=== PATIENT | male | born 1950 | race African-American/Black ===

== ENCOUNTER 2018-06-12 02:12 | Inpatient (IN) | payer MEDICARE ==
[~2018-06-12] VITALS: Ht 172.7 cm; Wt 107.0 kg
[2018-06-12] VITALS (7 sets, daily range): BP systolic 178–206; BP diastolic 82–101
[2018-06-12] MEDS ORDERED: METFORMIN HCL500 MG PO (02:33)
[2018-06-12] MEDS ORDERED: ZOFRAN ODT4 MG PO (02:33)
[2018-06-12] MEDS ORDERED: CRESTOR10 MG PO (02:33)
[2018-06-12] MEDS ORDERED: LISINOPRIL20 MG PO (02:33)
[2018-06-12] MEDS ORDERED: PROCARDIA XL30 MG PO (02:33)
[2018-06-12] MEDS ORDERED: ONDANSETRON HCL INJ 2 MG/ML VIAL IV STA (02:34)
[2018-06-12 02:42] LABS: BASOPHILS % 0.2 % (0.0-1.0); HEMOGLOBIN 16.4 g/dL (14.0-18.0); LYMPHOCYTES # (AUTO) 0.6 (1.0-3.2); LYMPHOCYTES % 7.9 % (18.0-39.1); MEAN CORPUSCULAR HEMOGLOBIN 31.8 pg (28-32); MEAN CORPUSCULAR HGB CONC 35.7 g/dL (31-35); MEAN CORPUSCULAR VOLUME 89.1 fL (81-99); MONOCYTES # (AUTO) 0.6 (0.2-0.8); MONOCYTES % 7.3 % (4.4-11.3); NEUTROPHILS # (AUTO) 6.8 (2.1-6.9); NEUTROPHILS % 84.2 % (38.7-80.0); PLATELET COUNT 199 x10e3/uL (140-360); RED BLOOD COUNT 5.16 x10e6/uL (4.3-5.7); RED CELL DISTRIBUTION WIDTH 12.4 % (11.7-14.4)
[2018-06-12] MEDS ORDERED: SODIUM CHLORIDE 0.9% 1000ML 1,000 ML IV ONE (02:45)
[2018-06-12 02:54] LABS: ALANINE AMINOTRANSFERASE 55 IU/L (0-55); ALBUMIN 4.4 g/dL (3.5-5.0); ALKALINE PHOSPHATASE 74 IU/L (40-150); AMYLASE 116 U/L (25-125); ANION GAP 19.5 mmol/L (8-16); BLOOD UREA NITROGEN 11 mg/dL (7-26); BUN/CREATININE RATIO 11 (6-25); CALCIUM 9.6 mg/dL (8.4-10.2); CARBON DIOXIDE 23 mmol/L (22-29); CHLORIDE 83 mmol/L (98-107); CREATININE, SERUM 0.97 mg/dL (0.72-1.25); EST GLOMERULAR FILTRATION RATE > 60 ML/MIN (60-); GLUCOSE 191 mg/dL (74-118); LIPASE 46 U/L (8-78); POTASSIUM 3.5 mmol/L (3.5-5.1); SODIUM 122 mmol/L (136-145)
[2018-06-12] MEDS ORDERED: METOPROLOL TARTRATE INJ 1 MG/ML VIAL IV ONE ×2 (03:15→04:00)
[2018-06-12] MEDS ORDERED: METOPROLOL TARTRATE INJ 1 MG/ML VIAL ONE (03:16)
[2018-06-12] MEDS ORDERED: SODIUM CHLORIDE 0.9% 50ML 50 ML ONE (03:19)
[2018-06-12] MEDS ORDERED: IOPAMIDOL 370 MG/ML 200 ML INFUS..BTL INJ ONE (03:19)
[2018-06-12 04:07] LABS: BILIRUBIN,URINE NEGATIVE (NEGATIVE); CLARITY,URINE CLEAR (CLEAR); COLOR,URINE YELLOW (YELLOW); KETONES,URINE NEGATIVE (NEGATIVE); LEUKOCYTE ESTERASE ,URINE NEGATIVE (NEGATIVE); NITRITE,URINE NEGATIVE (NEGATIVE); PROTEIN,URINE DIPSTICK 2+ (NEGATIVE); URINE UROBILINOGEN 0.2 mg/dL (0.2 - 1)
[2018-06-12 04:12] LABS: BACTERIA,URINE RARE /HPF; EPITHELIAL CELLS,URINE RARE /LPF
[2018-06-12 04:19] LABS: CREATINE KINASE MB 9.9 ng/mL (0-5.0)
--- NOTE | 2018-06-12 04:49 | Diagnostic Imaging Report ---
EXAM: CT Abdomen and Pelvis WITH contrast INDICATION: Nausea and vomiting for one day. COMPARISON: None. TECHNIQUE: Abdomen and pelvis were scanned utilizing a multidetector helical scanner from the lung base to the pubic symphysis after administration of IV contrast. Coronal and sagittal reformations were obtained. Routine protocol was performed. Scan was performed during portal venous phase. IV CONTRAST: 100 mL of Isovue-370 ORAL CONTRAST: Water COMPLICATIONS: None RADIATION DOSE: Total DLP: 68.9 mGy*cm Estimated effective dose: (DLP x 0.015 x size factor) mSv CTDIvol has been reviewed. It is below the limits set by the Radiation Protocol Committee (RPC). Dose modulation, iterative reconstruction, and/or weight based adjustment of the mA/kV was utilized to reduce the radiation dose to as low as reasonably achievable. FINDINGS: LINES and TUBES: Penile prosthesis with reservoir in the right lower quadrant. LOWER THORAX: Coronary artery calcifications. Mild dependent atelectasis, right greater than left. HEPATOBILIARY: Hepatic steatosis. No focal hepatic lesions. No biliary ductal dilation. GALLBLADDER: No radio-opaque stones or sludge. No wall thickening. SPLEEN: No splenomegaly. PANCREAS: No focal masses or ductal dilatation. ADRENALS: No adrenal nodules KIDNEYS/URETERS: Mild bilateral perinephric stranding. Kidneys enhance symmetrically. No hydronephrosis. Right inferior pole tiny hypodensity, too small to characterize but statistically likely a cyst. No stones. GI TRACT: No abnormal distention, wall thickening, or evidence of bowel obstruction. Stomach is mild to moderately distended. There are diverticula within the colon without evidence of diverticulitis. Appendix is normal. PELVIC ORGANS/BLADDER: Distended bladder measuring approximately 17.6 x 8.9 x 11 cm. Prostate not enlarged measuring approximately 3.3 cm in transverse diameter. LYMPH NODES: No lymphadenopathy. VESSELS: There is moderate atherosclerotic disease in the aorta and major arterial branches. PERITONEUM / RETROPERITONEUM: No free air or fluid. BONES: There are mild degenerative changes in the lumbar spine. SOFT TISSUES: Unremarkable. IMPRESSION: 1. Markedly distended bladder. Recommend correlation for urinary retention. No hydronephrosis. 2. Otherwise, no acute abnormalities in the abdomen or pelvis. 3. Mild to moderate gastric distension which may be related to scanning shortly after enteric water contrast ingestion or gastroparesis. 4. Hepatic steatosis. Signed by: DR. Enrique Jackson MD on 06/12/2018 4:46 AM
--- OUTSIDE RECORDS SUMMARY | 2018-06-12 05:10 | XMS REPORT ---
Author Author [facility] [place] Address Unknown Phone Unavailable Care Team Providers Care Network Liaison Name Role Phone Nancy LANDAVERDE Unavailable Unavailable Problems This patient has no known problems. Allergies, Adverse Reactions, Alerts This patient has no known allergies or adverse reactions. Medications This patient has no known medications. Results Test Description Test Time Test Comments Text Results Atomic Results Result Comments CT ABDOMEN/PELVIS W 2018-06-12 04:28:00 [place] [address] Patient Name: BURAK MATTHEWS MR #: [id number] : 1950 Age/Sex: 68/M Req #: [id number] Adm Physician: Ordered by: ABDULAZIZ LANDAVERDE MD Report #: [id number] Location: ER Room/Bed: Procedure: [id number] CT/CT ABDOMEN/PELVIS W Exam Date: 06/12/18 Exam Time: 0325 REPORT STATUS: Signed EXAM: CT Abdomen and Pelvis WITH contrast INDICATION: Nausea and vomiting for one day. COMPARISON: None. TECHNIQUE: Abdomen and pelvis were scanned utilizing a multidetector helical scanner from the lung base to the pubic symphysis after administration of IV contrast. Coronal and sagittal reformations were obtained. Routine protocol was performed. Scan was performed during portal venous phase. IV CONTRAST: 100 mL of Isovue-370 ORAL CONTRAST: Water COMPLICATIONS: None RADIATION DOSE: Total DLP: 68.9 mGy*cm Estimated effective dose: (DLP x 0.015 x size factor) mSv CTDIvol has been reviewed. It is below the limits set by the Radiation Protocol Committee (RPC). Dose modulation, iterative reconstruction, and/or weight based adjustment of the mA/kV was utilized to reduce the radiation dose to as low as reasonably achievable. FINDINGS: LINES and TUBES: Penile prosthesis with reservoir in the right lower quadrant. LOWER THORAX: Coronary artery calcifications. Mild dependent atelectasis, right greater than left. HEPATOBILIARY: Hepatic steatosis. No focal hepatic lesions. No biliary ductal dilation. GALLBLADDER: No radio-opaque stones or sludge. No wall thickening. SPLEEN: No splenomegaly. PANCREAS: No focal masses or ductal dilatation. ADRENALS: No adrenal nodules KIDNEYS/URETERS: Mild bilateral perinephric stranding. Kidneys enhance symmetrically. No hydronephrosis. Right inferior pole tiny hypodensity, too small to characterize but statistically likely a cyst. No stones. GI TRACT: No abn ormal distention, wall thickening, or evidence of bowel obstruction. Stomach is mild to moderately distended. There are diverticula within the colon without evidence of diverticulitis. Appendix is normal. PELVIC ORGANS/BLADDER: Distended bladder measuring approximately 17.6 x 8.9 x 11 cm. Prostate not enlarged measuring approximately 3.3 cm in transverse diameter. LYMPH NODES: No lymphadenopathy. VESSELS: There is moderate atherosclerotic disease in the aorta and major arterial branches. PERITONEUM / RETROPERITONEUM: No free air or fluid. BONES: There are mild degenerative changes in the lumbar spine. SOFT TISSUES: Unremarkable. IMPRESSION: 1. Markedly distended bladder. Recommend correlation for urinary retention. No hydronephrosis. 2. Otherwise, no acute abnormalities in the abdomen or pelvis. 3. Mild to moderate gastric distension which may be related to scanning shortly after enteric water contrast ingestion or gastroparesis. 4. Hepatic steatosis. Signed by: DR. Enrique Jackson MD on 06/12/2018 4:46 AM Dictated By: ENRIQUE JACKSON MD 5 Transcribed By: TIFFANIE on 06/12/18445 COPY TO: ABDULAZIZ LANDAVERDE MD
[2018-06-12] MEDS ORDERED: DEXTROSE 50% SYRINGE 50 ML IV PRN (05:15)
[2018-06-12] MEDS ORDERED: ONDANSETRON HCL INJ 2 MG/ML VIAL IV PRN (05:15)
[2018-06-12] MEDS: HYDRALAZINE HCL 20 MG/ML VIAL IV PRN ×2 (05:24→09:04)
[2018-06-12] MEDS ORDERED: ONDANSETRON HCL INJ 2 MG/ML VIAL ONE (05:49)
[2018-06-12] MEDS ORDERED: PANTOPRAZOLE 40 MG 10ML VIAL ONE (05:50)
[2018-06-12] MEDS ORDERED: METOCLOPRAMIDE HCL 10 MG/2ML VIAL IV SCH (06:00)
[2018-06-12] MEDS: SODIUM CHLORIDE 0.9% 1000ML 1,000 ML IV SCH ×3 (06:34→19:51)
[2018-06-12] MEDS: INSULIN REGULAR, HUMAN 100 UNIT/1 ML 3ML VIAL SQ SCH ×2 (08:49→11:30)
[2018-06-12] MEDS ORDERED: PANTOPRAZOLE 40 MG 10ML VIAL IV SCH (09:00)
[2018-06-12] MEDS ORDERED: CLONIDINE HCL 0.2 MG TAB ONE (12:06)
[2018-06-12] MEDS: CLONIDINE HCL 0.1 MG TAB PO PRN ×2 (12:08→19:51)
[2018-06-12 12:35] LABS: ANION GAP 16.4 mmol/L (8-16); BLOOD UREA NITROGEN 10 mg/dL (7-26); BUN/CREATININE RATIO 11 (6-25); CALCIUM 9.1 mg/dL (8.4-10.2); CARBON DIOXIDE 22 mmol/L (22-29); CHLORIDE 87 mmol/L (98-107); EST GLOMERULAR FILTRATION RATE > 60 ML/MIN (60-); GLUCOSE 142 mg/dL (74-118); POTASSIUM 3.4 mmol/L (3.5-5.1); SODIUM 122 mmol/L (136-145)
[2018-06-12 12:39] LABS: CREATINE KINASE 1680 IU/L (30-200)
--- NOTE | 2018-06-12 14:14 | Diagnostic Imaging Report ---
History: Ataxia, hyperintense Comparison studies: None Technique: Sagittal T2; axial DWI, FLAIR, MPGR, T1, Coronal FLAIR. Intravenous contrast: None Findings: Scalp: Normal in signal . No masses . Bone marrow: Normal in signal intensity. Extra-axial: No masses, no fluid collections. Brain sulci: Mildly prominent. Ventricles: Mildly prominent . No hydrocephalus . Parenchyma: Scattered T2/flair hyperintensities of the periventricular and deep white matter No masses, hemorrhage, acute or chronic vascular insults. Suprasellar region: No abnormalities. Craniocervical junction: No abnormalities. Patent foramen magnum. No Chiari one malformation. Vessels: Normal flow-voids in the arteries and sinuses. IMPRESSION: 1. No acute abnormalities. 2. Moderate chronic microvascular ischemic changes of the white matter. Mild diffuse age-related volume loss Signed by: DR Douglas Aquino M.D. on 06/12/2018 2:11 PM
[2018-06-12] MEDS ORDERED: MECLIZINE HCL 12.5 MG TAB PO PRN (14:30)
[2018-06-12] MEDS: NIFEDIPINE CR 30 MG TAB PO SCH (16:45)
[2018-06-12] MEDS: INSULIN LISPRO 100 UNIT/1 ML 3ML VIAL SQ SCH ×2 (17:16→19:51)
[2018-06-12 20:47] LABS: CREATINE KINASE MB 8.1 ng/mL (0-5.0)
[2018-06-13] MEDS: HYDRALAZINE HCL 20 MG/ML VIAL IV PRN (00:08)
[2018-06-13 01:12] VITALS: BP 187/95
[2018-06-13 04:58] LABS: BASOPHILS % 0.2 % (0.0-1.0); HEMATOCRIT 43.6 % (38.2-49.6); HEMOGLOBIN 15.1 g/dL (14.0-18.0); LYMPHOCYTES # (AUTO) 1.1 (1.0-3.2); LYMPHOCYTES % 18.2 % (18.0-39.1); MEAN CORPUSCULAR HEMOGLOBIN 31.5 pg (28-32); MEAN CORPUSCULAR HGB CONC 34.6 g/dL (31-35); MONOCYTES % 16.7 % (4.4-11.3); NEUTROPHILS % 64.4 % (38.7-80.0); PLATELET COUNT 187 x10e3/uL (140-360); RED BLOOD COUNT 4.79 x10e6/uL (4.3-5.7); RED CELL DISTRIBUTION WIDTH 13.2 % (11.7-14.4)
[2018-06-13 05:24] LABS: ALANINE AMINOTRANSFERASE 50 IU/L (0-55); ALBUMIN 3.7 g/dL (3.5-5.0); ALKALINE PHOSPHATASE 60 IU/L (40-150); ANION GAP 15.4 mmol/L (8-16); BLOOD UREA NITROGEN 11 mg/dL (7-26); BUN/CREATININE RATIO 11 (6-25); CALCIUM 8.8 mg/dL (8.4-10.2); CARBON DIOXIDE 23 mmol/L (22-29); CHLORIDE 98 mmol/L (98-107); CREATININE, SERUM 1.02 mg/dL (0.72-1.25); EST GLOMERULAR FILTRATION RATE > 60 ML/MIN (60-); GLUCOSE 135 mg/dL (74-118); POTASSIUM 3.4 mmol/L (3.5-5.1); SODIUM 133 mmol/L (136-145)
[2018-06-13 06:11] VITALS: BP 137/85
[2018-06-13 06:45] LABS: CHOL/HDL RATIO 4.9 (3.9-4.7)
[2018-06-13 06:55] LABS: CREATINE KINASE MB 4.4 ng/mL (0-5.0)
[2018-06-13] MEDS: INSULIN LISPRO 100 UNIT/1 ML 3ML VIAL SQ SCH ×4 (07:30→20:56)
[2018-06-13 08:00] VITALS: BP 169/79
[2018-06-13] MEDS: SODIUM CHLORIDE 0.9% 1000ML 1,000 ML IV SCH (08:57)
[2018-06-13] MEDS: LISINOPRIL 20 MG TAB PO SCH (09:00)
[2018-06-13] MEDS: NIFEDIPINE CR 30 MG TAB PO SCH ×2 (09:00→17:13)
[2018-06-13 12:00] VITALS: BP 199/109
[2018-06-13] MEDS ORDERED: POTASSIUM CHLORIDE 20 MEQ TAB CR PO ONE (14:09)
[2018-06-13 16:00] VITALS: BP 178/90
[2018-06-13 20:00] VITALS: BP 170/77
[2018-06-13] MEDS: CLONIDINE HCL 0.1 MG TAB PO PRN (21:41)
[2018-06-14] VITALS: BP 123/73
[2018-06-14 04:00] VITALS: BP 135/74
[2018-06-14 05:18] LABS: BASOPHILS % 0.4 % (0.0-1.0); EOSINOPHILS % 0.4 % (0.0-6.0); HEMATOCRIT 43.6 % (38.2-49.6); HEMOGLOBIN 14.7 g/dL (14.0-18.0); LYMPHOCYTES # (AUTO) 1.2 (1.0-3.2); LYMPHOCYTES % 21.5 % (18.0-39.1); MEAN CORPUSCULAR HEMOGLOBIN 31.4 pg (28-32); MEAN CORPUSCULAR HGB CONC 33.7 g/dL (31-35); MEAN CORPUSCULAR VOLUME 93.2 fL (81-99); MONOCYTES % 18.7 % (4.4-11.3); NEUTROPHILS # (AUTO) 3.2 (2.1-6.9); NEUTROPHILS % 58.6 % (38.7-80.0); PLATELET COUNT 181 x10e3/uL (140-360); RED BLOOD COUNT 4.68 x10e6/uL (4.3-5.7); RED CELL DISTRIBUTION WIDTH 13.4 % (11.7-14.4)
[2018-06-14 05:38] LABS: ANION GAP 15.6 mmol/L (8-16); BLOOD UREA NITROGEN 13 mg/dL (7-26); BUN/CREATININE RATIO 15 (6-25); CARBON DIOXIDE 22 mmol/L (22-29); CHLORIDE 102 mmol/L (98-107); CREATINE KINASE 1225 IU/L (30-200); CREATININE, SERUM 0.87 mg/dL (0.72-1.25); EST GLOMERULAR FILTRATION RATE > 60 ML/MIN (60-); GLUCOSE 131 mg/dL (74-118); MAGNESIUM 2.2 MG/DL (1.3-2.1); POTASSIUM 3.6 mmol/L (3.5-5.1); SODIUM 136 mmol/L (136-145)
[2018-06-14 05:58] LABS: THYROID STIMULATING HORMONE 0.977 uIU/mL (0.350-4.940)
[2018-06-14] MEDS: INSULIN LISPRO 100 UNIT/1 ML 3ML VIAL SQ SCH (07:30)
[2018-06-14] MEDS: LISINOPRIL 20 MG TAB PO SCH (09:00)
[2018-06-14] MEDS: NIFEDIPINE CR 30 MG TAB PO SCH (09:00)
[2018-06-14 12:00] VITALS: BP_SYST 129; BP_SYST 190; BP_DIAS 68; BP_DIAS 79
[2018-06-14] MEDS ORDERED: NIFEDIPINE CR 30 MG TAB PO ONE (13:00)
--- NOTE | 2018-06-14 13:52 | Discharge Summary ---
PRIMARY CARE DOCTOR: Dr. Bryant Hopkins with [facility]. FINAL DIAGNOSIS: Hypertensive urgency. SECONDARY DIAGNOSES 1. Severe hyponatremia, resolved. 2. Rhabdomyolysis, resolving. 3. Diabetes. CONSULTANTS: None. PROCEDURES/STUDIES PERFORMED 1. MRI of the brain, which did not show any acute disease. 2. CT of the abdomen and pelvis, which was relatively unremarkable. HISTORY: Per H and P. HOSPITAL COURSE: Patient was admitted with dizziness and hypertension. Stat MRI was done, which did not show any acute disease. At home, patient takes nifedipine 30 mg daily and lisinopril 20 mg daily. At this time, he will go home on nifedipine 60 mg b.i.d. Patient understands and will do so. Initially on admission, his CPK was 1390, it peaked at 1878 and at the time of discharge is 1225 with IV fluid. Most likely what happened was because of the severe dizziness, patient vomited and cause hyponatremia due to hypovolemia. With hydration, his sodium slowly came up from 122 to 136 at the time of discharge. Patient seen and examined today. It took 32 minutes total to discharge this patient. CONDITION ON DISCHARGE: Improved. DISCHARGE MEDICATIONS: Please see medication reconciliation form. BEBETO HENDRIX M.D. Job#: [id number] AKU cc:BRYANT HOPKINS MD
== END 2018-06-14 14:53 | disposition home or self-care (01) | DRG 305 ==
LOC: ER 02:12 → ERHOLD 05:08 → MED/SURG2 06:09
PROVIDERS: ADMIT Internal Medicine; ATTEND Internal Medicine
DX: I16.0 Hypertensive urgency (principal); E87.1 Hypo-osmolality and hyponatremia; M62.82 Rhabdomyolysis; E86.1 Hypovolemia; E87.6 Hypokalemia; E11.9 Type 2 diabetes mellitus without complications; I10 Essential (primary) hypertension; E78.5 Hyperlipidemia, unspecified; E86.9 Volume depletion, unspecified; Z28.21 Immunization not carried out because of patient refusal; Z79.84 Long term (current) use of oral hypoglycemic drugs
CPT/HCPCS: 36415; 70551; 74177; 80048; 80053; 80061; 81001; 82150; 82550; 82553; 82948; 83690; 83735; 84443; 84484; 85025; 93005; 94640; 96361; 99284; J0360; J2405; J2765; J7030; Q9967

== ENCOUNTER 2020-04-04 23:05 | Inpatient (IN) | payer MEDICARE, OTHER ==
[~2020-04-04] VITALS: Ht 172.7 cm; Wt 107.0 kg
[~2020-04-04 23:05] MED LIST: CRESTOR10 MG PO; LISINOPRIL20 MG PO; METFORMIN HCL500 MG PO; PROCARDIA XL30 MG PO; ZOFRAN ODT4 MG PO
[2020-04-04] MEDS ORDERED: ASPIRIN 81 MG CHEW TAB PO ONE (23:15)
[2020-04-04] MEDS ORDERED: FUROSEMIDE INJ 10 MG/ML 4 ML VIAL ONE (23:17)
[2020-04-04 23:29] LABS: INR 0.87; PROTHROMBIN TIME 12.3 seconds (11.9-14.5)
[2020-04-04 23:30] LABS: PARTIAL THROMBOPLASTIN TIME 25.5 seconds (23.8-35.5)
[2020-04-04 23:38] LABS: BASOPHILS % 0.4 % (0.0-1.0); CHLORIDE 101 mmol/L (98-107); EOSINOPHILS # (AUTO) 0.1 (0.0-0.4); EOSINOPHILS % 1.2 % (0.0-6.0); HEMATOCRIT 48.5 % (38.2-49.6); HEMOGLOBIN 15.9 g/dL (14.0-18.0); LYMPHOCYTES # (AUTO) 3.5 (1.0-3.2); MEAN CORPUSCULAR HEMOGLOBIN 31.2 pg (28-32); MEAN CORPUSCULAR HGB CONC 32.8 g/dL (31-35); MEAN CORPUSCULAR VOLUME 95.3 fL (81-99); MONOCYTES # (AUTO) 1.4 (0.2-0.8); MONOCYTES % 15.4 % (4.4-11.3); NEUTROPHILS # (AUTO) 4.1 (2.1-6.9); NEUTROPHILS % 44.7 % (38.7-80.0); PLATELET COUNT 224 x10e3/uL (140-360); RED BLOOD COUNT 5.09 x10e6/uL (4.3-5.7); RED CELL DISTRIBUTION WIDTH 13.2 % (11.7-14.4)
[2020-04-04 23:40] LABS: ALANINE AMINOTRANSFERASE 73 IU/L (0-55); ALBUMIN 4.7 g/dL (3.5-5.0); ALBUMIN/GLOBULIN RATIO 1.2 (0.8-2.0); ALKALINE PHOSPHATASE 92 IU/L (40-150); ANION GAP 20.3 mmol/L (8-16); BLOOD UREA NITROGEN 16 mg/dL (7-26); BUN/CREATININE RATIO 11 (6-25); CALCIUM 9.3 mg/dL (8.4-10.2); CARBON DIOXIDE 20 mmol/L (22-29); CREATINE KINASE 292 IU/L (30-200); CREATININE, SERUM 1.48 mg/dL (0.72-1.25); EST GLOMERULAR FILTRATION RATE 57 ML/MIN (60-); GLUCOSE 172 mg/dL (74-118); POTASSIUM 3.3 mmol/L (3.5-5.1); SODIUM 137 mmol/L (136-145)
[2020-04-04 23:41] LABS: BILIRUBIN,URINE NEGATIVE (NEGATIVE); CLARITY,URINE CLEAR (CLEAR); COLOR,URINE YELLOW (YELLOW); KETONES,URINE NEGATIVE (NEGATIVE); LEUKOCYTE ESTERASE ,URINE NEGATIVE (NEGATIVE); NITRITE,URINE NEGATIVE (NEGATIVE); PROTEIN,URINE DIPSTICK 2+ (NEGATIVE); URINE UROBILINOGEN 0.2 mg/dL (0.2 - 1)
[2020-04-04 23:52] LABS: BACTERIA,URINE FEW /HPF; EPITHELIAL CELLS,URINE FEW /LPF; RBC,URINE 0-5 /HPF (0-5); WBC,URINE (MAN) 0-5 /HPF (0-5)
--- NOTE | 2020-04-04 23:53 | Emergency Department Note ---
History of Present Illnes History of Present Illness Chief Complaint: Respiratory History of Present Illness This is a 70 year old male PRESENTS TO ED WITH SOB, DIAPHORETIC X4-5 HRS; PT ALSO REPORTS SOB X1 WEEK, TAKEN TO ED RM #10 ON ARRIVAL; ER MD / ED STAFF AT ; SPO2 68% RA, NRB 15 LPM PLACED WITH RESULTING SPO2 100%; RESP CALLED TO BS FOR BIPAP; . Historian: Patient, Family Member Arrival Mode: Car Rate Marker Required: No Onset (how long ago): day(s) (7) Location: lungs Quality: sob Severity: severe Onset quality: gradual Duration (how long): day(s) (7) Timing of current episode: constant Progression: worsening Chronicity: new Context: Denies recent illness, Denies recent surgery Relieving factors: none Exacerbating factors: movement Associated symptoms: Reports denies other symptoms Past Medical/Family History Physician Review I have reviewed the patient's past medical and family history. Any updates have been documented here. Past Medical History Recent Fever: No Clinical Suspicion of Infectio: No New/Unexplained Change in Ment: No Past Medical History: Hypertension, Diabetes, Hyperlipedemia Other Surgery: BILATERAL KNEE SURGERY Social History Smoking Cessation: Never Smoker Counseling Performed: No Alcohol Use: None Any Illegal Drug Use: No Physically hurt or threatened: No Other Any Pre-Existing Lines (PICC,: No Review of Systems Review of Systems Constitutional: Reports no symptoms EENTM: Reports no symptoms Cardiovascular: Reports no symptoms Respiratory: Reports as per HPI Gastrointestinal: Reports no symptoms Genitourinary: Reports no symptoms Musculoskeletal: Reports no symptoms Integumentary: Reports no symptoms Neurological: Reports no symptoms Psychological: Reports no symptoms Endocrine: Reports no symptoms Hematological/Lymphatic: Reports no symptoms Physical Exam Related Data Allergies: Coded Allergies: No Known Allergies (Unverified , 06/12/18) Triage Vital Signs Vital Signs Date Time Temp Pulse Resp B/P (MAP) Pulse Ox O2 Delivery O2 Flow Rate FiO2 04/04/20 23:06 97.6 158 38 207/140 68 Room Air Vital signs reviewed: Yes Physical Exam CONSTITUTIONAL Constitutional: Present well-developed, Present well-nourished, Present distressed (severe) HENT HENT: Present normocephalic, Present atraumatic, Present oropharynx clear/moist, Present nose normal HENT L/R: Present left ext ear normal, Present right ext ear normal EYES Eyes: Reports PERRL, Reports conjunctivae normal NECK Neck: Present ROM normal PULMONARY Pulmonary: Present effort normal, Present rales (througout, ), Present other (rr 48 on arrival) CARDIOVASCULAR Cardiovascular: Present regular rhythm, Present heart sounds normal, Present capillary refill normal, Present tachycardia (155) GASTROINTESTINAL Abdominal: Present soft, Present nontender, Present bowel sounds normal GENITOURINARY Genitourinary: Present exam deferred SKIN Skin: Present warm, Present other (diaphoretic ) MUSCULOSKELETAL Musculoskeletal: Present ROM normal NEUROLOGICAL Neurological: Present alert, Present oriented x 3, Present no gross motor or sensory deficits PSYCHOLOGICAL Psychological: Present mood/affect normal, Present judgement normal Results Laboratory Result Diagram: 04/04/205 04/04/205 Laboratory Laboratory Tests Test 04/04/20 23:20 04/04/20 23:15 Urine Color Yellow (YELLOW) Urine Clarity Clear (CLEAR) Urine pH 7 (5 - 7) Urine Specific [place] 1.020 (1.010-1.025) Urine Protein 2+ (NEGATIVE) Urine Glucose (UA) Negative (NEGATIVE) Urine Ketones Negative (NEGATIVE) Urine Blood Negative (NEGATIVE) Urine Nitrite Negative (NEGATIVE) Urine Bilirubin Negative (NEGATIVE) Urine Urobilinogen 0.2 mg/dL (0.2 - 1) Urine Leukocyte Esterase Negative (NEGATIVE) White Blood Count 9.24 x10e3/uL (4.8-10.8) Red Blood Count 5.09 x10e6/uL (4.3-5.7) Hemoglobin 15.9 g/dL (14.0-18.0) Hematocrit 48.5 % (38.2-49.6) Mean Corpuscular Volume 95.3 fL (81-99) Mean Corpuscular Hemoglobin 31.2 pg (28-32) Mean Corpuscular Hemoglobin Concent 32.8 g/dL (31-35) Red Cell Distribution Width 13.2 % (11.7-14.4) Platelet Count 224 x10e3/uL (140-360) Neutrophils (%) (Auto) 44.7 % (38.7-80.0) Lymphocytes (%) (Auto) 38.0 % (18.0-39.1) Monocytes (%) (Auto) 15.4 % (4.4-11.3) Eosinophils (%) (Auto) 1.2 % (0.0-6.0) Basophils (%) (Auto) 0.4 % (0.0-1.0) Neutrophils # (Auto) 4.1 (2.1-6.9) Lymphocytes # (Auto) 3.5 (1.0-3.2) Monocytes # (Auto) 1.4 (0.2-0.8) Eosinophils # (Auto) 0.1 (0.0-0.4) Basophils # (Auto) 0.0 (0.0-0.1) Absolute Immature Granulocyte (auto 0.03 x10e3/uL (0-0.1) Prothrombin Time 12.3 seconds (11.9-14.5) Prothromb Time International Ratio 0.87 Activated Partial Thromboplast Time 25.5 seconds (23.8-35.5) Sodium Level 137 mmol/L (136-145) Potassium Level 3.3 mmol/L (3.5-5.1) Chloride Level 101 mmol/L (98-107) Carbon Dioxide Level 20 mmol/L (22-29) Anion Gap 20.3 mmol/L (8-16) Blood Urea Nitrogen 16 mg/dL (7-26) Creatinine 1.48 mg/dL (0.72-1.25) Estimat Glomerular Filtration Rate 57 ML/MIN (60-) BUN/Creatinine Ratio 11 (6-25) Glucose Level 172 mg/dL (74-118) Calcium Level 9.3 mg/dL (8.4-10.2) Total Bilirubin 0.5 mg/dL (0.2-1.2) Aspartate Amino Transf (AST/SGOT) 52 IU/L (5-34) Alanine Aminotransferase (ALT/SGPT) 73 IU/L (0-55) Alkaline Phosphatase 92 IU/L (40-150) Creatine Kinase 292 IU/L (30-200) Creatine Kinase MB 3.60 ng/mL (0-4.3) Troponin I < 0.05 ng/mL (0.0-0.40) Total Protein 8.6 g/dL (6.5-8.1) Albumin 4.7 g/dL (3.5-5.0) Globulin 3.9 g/dL (2.3-3.5) Albumin/Globulin Ratio 1.2 (0.8-2.0) Procedures 12 Lead ECG Interpretation ECG Interpretation #1: ECG: ECG 1 Rate Marker: Interpreted by ED physician Date: Apr 04, 2020 Time: 23:13 Rhythm: sinus tachycardia QRS axis: right Conduction: left bundle branch block ST segments normal: No T waves normal: No Other findings: LVH Clinical Impression: abnormal ECG ECG Interpretation #2: ECG: ECG 2 Rate Marker: Interpreted by ED physician Date: Apr 04, 2020 Time: 23:53 Rhythm: sinus tachycardia Rate: tachycardia BPM: 111 Conduction: left bundle branch block ST segments normal: No T waves normal: No Clinical Impression: abnormal ECG Critical Care Time Total Critical Care Time (min): 31 Critcal care necessary due to: cardiac failure Critcal care time spent by me: develop tx plan w patient/surrogate, discussion w consultants, discussion w primary provider, interpret cardiac output measures, evaluation patient response to tx, examination of patient, obtaining hx from patient/surrogate, order/perform tx or interventions, order/review laboratory studies, order/review radiographic studies, pulse oximetry, re-evaluation of patient condition Assessment & Plan Medical Decision Making MDM pt in severe respiratory distress on arrival, on exam pt with rales throughout and 3 plus pitting edema of legs, pt placed on bpap emergently for chf/pulmonary edema, lasix 80 mg iv ordered, pt's respiratory distress and need for bipap is due to pulmonary edema cbc, cmp, ekg, cardiac enzymes, cxr, bnp ordered to eval for myocardial infa rction, pulmonary edema, electrolyte abnormality, renal insufficiency/failure PT RESPONDED WELL TO BIPAP AND LASIX 0029 BP 172/119, PULSE 110, OXYGEN 100% ON BIPAP, RR 24, PT NOW ABLE TO TALK IN FULL SENTENCES I SPOKE WITH DR HENDRIX AND DR HESTER PT ADMITTED TO [facility] Reassessment Reassessment time: 23:52 Reassessment on bipap pt looks much better, rr now 26, heart rate 110, oxygen saturation 100%, no longer diaphoretic Assessment & Plan Final Impression: (1) Respiratory distress (2) CHF (congestive heart failure) (3) Hypoxia (4) Flash pulmonary edema Depart Disposition: ADMITTED Last Vital Signs Date Time Temp Pulse Resp B/P (MAP) Pulse Ox O2 Delivery O2 Flow Rate FiO2 04/04/20 23:41 118 30 188/140 100 Bi-pap 04/04/20 23:06 97.6 Home Meds Reported Medications Metformin Hcl (METFORMIN HCL) 500 Mg Tablet, 500 MG PO BID, #60 TAB 06/12/18 Ondansetron (ZOFRAN ODT) 4 Mg Tab.rapdis, 4 MG PO Q6HR PRN for NAUSEA AND VOMITING, TAB 06/12/18 Lisinopril (PRINAVIL / ZESTRIL) 20 Mg Tablet, 20 MG PO DAILY 06/12/18 Nifedipine (PROCARDIA XL) 30 Mg Tab.er.24, 30 MG PO DAILY, #30 TAB 06/12/18 Medications in the ED Furosemide 80 mg STK-MED ONCE .ROUTE ; Start 04/04/20 at 23:17; Stop 04/04/20 at 23:11; Status DC Aspirin 81 mg PRN ONCE PO ; Start 04/04/20 at 23:15; Stop 04/04/20 at 23:29; Status DC ABDULAZIZ LANDAVERDE MD Apr 04, 2020 23:53
--- NOTE | 2020-04-04 23:53 | Diagnostic Imaging Report ---
EXAMINATION: CHEST SINGLE (PORTABLE) INDICATION: ^SOB, PULMONARY EDEMA ^[id number] ^2335 ^Y COMPARISON: None FINDINGS: AP view TUBES and LINES: None. LUNGS: Lungs are well inflated. Pulmonary vascular congestion. Mild to moderate pulmonary edema. PLEURA: No pneumothorax. Suspected small bilateral pleural effusions, left greater than right. HEART AND MEDIASTINUM: The cardiac silhouette is borderline enlarged. BONES AND SOFT TISSUES: No acute osseous lesion. Surgical clips projecting over right upper quadrant or right lower chest. UPPER ABDOMEN: No free air under the diaphragm. IMPRESSION: Central pulmonary vascular congestion and mild moderate interstitial edema. Underlying pneumonia cannot be excluded, in the lower lung new, in the appropriate clinical context. Suspected small bilateral pleural effusions, left greater right. Signed by: Dr. Nj Vlila MD on 04/04/2020 11:50 PM
--- OUTSIDE RECORDS SUMMARY | 2020-04-04 23:54 | XMS REPORT | Continuity of Care Document ---
Author Author [facility] Organization [facility] Address [address] [place] [address] Phone Unavailable Care Team Providers Care Change Control Specialist Name Role Phone Nancy LANDAVERDE Attphys Unavailable Drew HENDRIX Attphys Unavailable Drew HENDRIX Admphys Unavailable Problems This patient has no known problems. Allergies, Adverse Reactions, Alerts This patient has no known allergies or adverse reactions. Medications This patient has no known medications. Procedures This patient has no known procedures. Results Test Description Test Time Test Comments Results Result Comments Source CHEST SINGLE (PORTABLE) 2020-04-04 23:47:00 [place] [address] Patient Name: BURAK MATTHEWS MR #: [id number] : 1950 Age/Sex: 70/M Req #: [id number] Adm Physician: Ordered by: ABDULAZIZ LANDAVERDE MD Report #: [id number] Location: ER Room/Bed: Procedure: [id number] DX/CHEST SINGLE (PORTABLE) Exam Date: 04/04/20 Exam Time: 2334 REPORT STATUS: Signed EXAMINATION: CHEST SINGLE (PORTABLE) INDICATION: SOB, PULMONARY EDEMA [id number] Y COMPARISON: None FINDINGS: AP view TUBES and LINES: None. LUNGS: Lungs are well inflated. Pulmonary vascular congestion. Mild to moderate pulmonary edema. PLEURA: No pneumothorax. Suspected small bilateral pleural effusions, left greater than right. HEART AND MEDIASTINUM: The cardiac silhouette is borderline enlarged. BONES AND SOFT TISSUES: No acute osseous lesion. Surgical clips projecting over right upper quadrant or right lower chest. UPPER ABDOMEN: No free air under the diaphragm. IMPRESSION: Central pulmonary vascular congestion and mild moderate interstitial edema. Underlying pneumonia cannot be excluded, in the lower lung new, in the appropriate clinical context. Suspected small bilateral pleural effusions, left greater right. Signed by: Dr. Nj Mejía MD on 04/04/2020 11:50 PM Dictated By: NJ MEJÍA MD 49 Transcribed By: TIFFANIE on 04/04/202349 COPY TO: ABDULAZIZ LANDAVERDE MD MRI BRAIN WO 2018-06-12 14:07:00 [place] [address] Patient Name: BURAK MATTHEWS MR #: [id number] : 1950 Age/Sex: 68/M Req #: [id number] Adm Physician: BEBETO HENDRIX MD Ordered by: BEBETO HENDRIX MD Report #: [id number] Location: MED/SURG2 Room/Bed: [facility] [place] Procedure: [id number] MRI/MRI BRAIN WO Exam Date: Exam Time: REPORT STATUS: Signed History: Ataxia, hyperintense Comparison studies: None Technique: Sagittal T2; axial DWI, FLAIR, MPGR, T1, Coronal FLAIR. Intravenous contrast: None Findings: Scalp: Normal in signal . No masses . Bone marrow: Normal in signal intensity. Extra-axial: No masses, no fluid collections. Brain sulci: Mildly prominent. Ventricles: Mildly prominent . No hydrocephalus . Parenchyma: Scattered T2/flair hyperintensities of the periventricular and deep white matter No masses, hemorrhage, acute or chronic vascular insults. Suprasellar region: No abnormalities. Craniocervical junction: No abnormalities. Patent foramen magn um. No Chiari one malformation. Vessels: Normal flow-voids in the arteries and sinuses. IMPRESSION: 1. No acute abnormalities. 2. Moderate chronic microvascular ischemic changes of the white matter. Mild diffuse age- related volume loss Signed by: DR Douglas Aquino M.D. on 06/12/2018 2:11 PM Dictated By: DOUGLAS SOTELO MD 1411 Transcribed By: TIFFANIE on 06/12/18 141 COPY TO: BEBETO HENDRIX MD CT ABDOMEN/PELVIS W 2018-06-12 04:28:00 [place] [address] Patient Name: BURAK MATTHEWS MR #: [id number] : 1950 Age/Sex: 68/M Req #: [id number] Adm Physician: Ordered by: ABDULAZIZ LANDAVERDE MD Report #: [id number] Location: ER Room/Bed: Procedure: [id number] CT/CT ABDOMEN/PELVIS W Exam Date: 06/12/18 Exam [...] 4. Hepatic steatosis. Signed by: DR. Enrique Garcia MD on 06/12/2018 4:46 AM Dictated By: ENRIQUE GARCIA MD 5 Transcribed By: TIFFANIE on 06/12/18445 COPY TO: ABDULAZIZ LANDAVERDE MD
[2020-04-05] VITALS (7 sets, daily range): BP systolic 108–152; BP diastolic 81–94
[2020-04-05] MEDS ORDERED: NITROGLYCERIN 2% OINT 1 GM PKT TOP ONE
[2020-04-05] MEDS ORDERED: NITROGLYCERIN 2% OINT 1 GM PKT ONE (00:07)
[2020-04-05] MEDS ORDERED: SODIUM CHLORIDE FLUSH 10 ML SYR INJ PRN (00:30)
[2020-04-05] MEDS ORDERED: DEXTROSE 50% SYRINGE 50 ML IV PRN (00:30)
[2020-04-05] MEDS: HYDRALAZINE HCL 20 MG/ML VIAL IV PRN ×2 (01:45→06:43)
--- OUTSIDE RECORDS SUMMARY | 2020-04-05 05:04 | XMS REPORT | Continuity of Care Document ---
Author Author [facility] Organization [facility] Address [address] [place] [address] Phone Unavailable Care Team Providers Care Environmental Health Manager Name Role Phone Nancy LANDAVERDE Attphys Unavailable [...] Comments Source CHEST SINGLE (PORTABLE) 2020-04-04 23:47:00 [place] [address] Patient Name: BURAK MATTHEWS MR #: [id number] : 1950 Age/Sex: 70/M Req #: [id number] Adm Physician: Ordered by: ABDULAZIZ LANDAVERDE MD Report #: [id number] Location: ER Room/Bed: Procedure: [id number] DX/CHEST SINGLE (PORTABLE) Exam Date: 04/04/20 Exam [...] LANDAVERDE MD MRI BRAIN WO 2018-06-12 14:07:00 [place] [address] Patient Name: BURAK MATTHEWS MR #: [id number] : 1950 Age/Sex: 68/M Req #: [id number] Adm Physician: BEBETO HENDRIX MD Ordered by: BEBETO HENDRIX MD Report #: [id number] Location: MED/SURG2 Room/Bed: [facility] Procedure: [id number] MRI/MRI BRAIN WO Exam Date: Exam Time: [...] HENDRIX MD CT ABDOMEN/PELVIS W 2018-06-12 04:28:00 [place] [address] Patient Name: BURAK MATTHEWS MR #: [id number] : 1950 Age/Sex: 68/M Req #: [id number] Adm Physician: Ordered by: ABDULAZIZ LANDAVERDE MD Report #: [id number] Location: ER Room/Bed: Procedure: [id number] CT/CT ABDOMEN/PELVIS W Exam Date: 06/12/18 Exam [...]
--- NOTE | 2020-04-05 05:50 | NUR ---
o2 sat remains 98%-100% on bipap. resp even and unalbored c rate 15-20 per minute. pt calm c no distress noted. md states to change patient to nasal canula. rt called. pt changed to nasal canula at 2l. o2 sat remains 100%.
[2020-04-05] MEDS ORDERED: NITROGLYCERIN 2% OINT 1 GM PKT TOP SCH (06:00)
[2020-04-05] MEDS ORDERED: POTASSIUM CHLORIDE 20 MEQ TAB CR PO NR (06:30)
[2020-04-05 07:25] LABS: CREATINE KINASE MB 3.3 ng/mL (0-5.0)
[2020-04-05] MEDS: INSULIN REGULAR, HUMAN 100 UNIT/1 ML 3ML VIAL SQ SCH ×4 (07:29→21:00)
[2020-04-05] MEDS ORDERED: CRESTOR10 MG PO (07:40)
[2020-04-05] MEDS ORDERED: TIZANIDINE HCL4 MG PO (07:40)
[2020-04-05 08:00] LABS: BASOPHILS % 0.1 % (0.0-1.0); EOSINOPHILS % 0.1 % (0.0-6.0); HEMATOCRIT 41.3 % (38.2-49.6); LYMPHOCYTES # (AUTO) 0.8 (1.0-3.2); LYMPHOCYTES % 12.1 % (18.0-39.1); MEAN CORPUSCULAR HGB CONC 33.9 g/dL (31-35); MONOCYTES # (AUTO) 0.9 (0.2-0.8); MONOCYTES % 13.6 % (4.4-11.3); NEUTROPHILS # (AUTO) 4.9 (2.1-6.9); NEUTROPHILS % 73.8 % (38.7-80.0); PLATELET COUNT 183 x10e3/uL (140-360); RED BLOOD COUNT 4.52 x10e6/uL (4.3-5.7); RED CELL DISTRIBUTION WIDTH 13.1 % (11.7-14.4)
[2020-04-05 08:03] LABS: MEAN CORPUSCULAR VOLUME 91.4 fL (81-99)
[2020-04-05 08:22] LABS: ANION GAP 20.5 mmol/L (8-16); BLOOD UREA NITROGEN 15 mg/dL (7-26); BUN/CREATININE RATIO 13 (6-25); CALCIUM 8.6 mg/dL (8.4-10.2); CARBON DIOXIDE 19 mmol/L (22-29); CHLORIDE 102 mmol/L (98-107); EST GLOMERULAR FILTRATION RATE > 60 ML/MIN (60-); GLUCOSE 127 mg/dL (74-118); POTASSIUM 3.5 mmol/L (3.5-5.1); SODIUM 138 mmol/L (136-145)
[2020-04-05] MEDS ORDERED: NIFEDIPINE CR 30 MG TAB PO SCH (09:15)
[2020-04-05] MEDS ORDERED: DIGOXIN 0.125 MG TAB PO NR (09:15)
[2020-04-05] MEDS ORDERED: CLOPIDOGREL BISULFATE 75 MG TAB PO NR (09:30)
[2020-04-05] MEDS: LISINOPRIL 10 MG TAB PO SCH ×2 (11:24→17:05)
[2020-04-05] MEDS: CARVEDILOL 12.5 MG TAB PO SCH ×2 (11:24→17:05)
[2020-04-05] MEDS: FUROSEMIDE INJ 10 MG/ML 4 ML VIAL IV SCH ×2 (11:24→17:05)
[2020-04-05] MEDS ORDERED: ENOXAPARIN SOD INJ 40 MG/0.4 ML SYR SC NR (12:00)
[2020-04-05] MEDS ORDERED: ACETAMINOPHEN 325 MG TAB PO PRN (12:00)
--- NOTE | 2020-04-05 13:23 | History and Physical ---
REPORT TITLE: Cardiac Consultation. BODY AFTER REPORT TITLE: REASON FOR CONSULTATION: Pulmonary edema acute and impending respiratory failure. HISTORY OF PRESENT ILLNESS: A 70-year-old gentleman known with diabetes mellitus and hypertension. The patient followed at [facility]. The patient for the last few weeks having worsening shortness of breath on exertion. Yesterday, it was very severe. The patient came to the emergency room, he was having extreme sinus tachycardia with left bundle branch block, very high blood pressure and pulmonary edema. We discussed the case with the ER physician. He was placed on BiPAP, he was given diuretics, he was given medication to lower his blood pressure. The patient seems to be settled down, admitted to intermediate care unit. I visited with the patient today, described chest pressure and chest tightness on exertion progressively worse in addition to class 4 heart failure like symptoms. He does have orthopnea and paroxysmal nocturnal dyspnea. He does feel his heart racing. He cannot do any activity without severe symptoms. He does have old class 4 heart failure symptoms as well as chest pressure and chest tightness. He is not aware of any cardiac workup. He is not aware he does have left bundle branch block. REVIEW OF SYSTEMS: GENERAL: Weakness, unable to do usual activities, severe shortness of breath. No fever, no chills. HEENT: No vision problem. No hearing problem. PULMONARY AND CARDIAC: Class 4 heart failure symptoms and acute pulmonary edema with chest pressure, chest tightness, orthopnea, paroxysmal nocturnal dyspnea, tachycardia, cough. GI: No hematemesis. No melena. No abdominal pain. : No hematuria, no dysuria. MUSCULOSKELETAL: Nonspecific aches at time. NEUROLOGICAL: No weakness. ENDOCRINE: The patient is diabetic on metformin. SKIN: No skin rashes. HEMATOLOGY: No easy bruising or bleeding. SOCIAL HISTORY: He is retired from [employer]. He is . Unfortunately, he smokes and he drinks 6 beers per day and some time whiskey. PAST MEDICAL HISTORY: 1. Hypertension of many years duration. 2. Diabetes mellitus of many years duration. 3. Bilateral knee replacement. 4. Degenerative joint disease symptoms. 5. Prior admission with hyponatremia and rhabdomyolysis in the past. 6. Hyperlipidemia. HOME MEDICATIONS: Include Zestril 20 mg a day, nifedipine 30 mg a day, Crestor 10 mg a day, Tizanidine, and metformin 500 mg twice a day. ALLERGIES: NONE. FAMILY HISTORY: Father and mother in their 60s, he does not know the cause of this. There is history of diabetes mellitus, hypertension, and heart failure in the family and one of his sister had also pacemaker. PHYSICAL EXAMINATION: VITAL SIGNS: Height of 5 feet 8 inches, weight of 236 pounds, blood pressure 140/80, heart rate of 110, respiratory rate of 18, afebrile. HEENT: Pupils are reactive. NECK: Elevation of jugular venous pulsation is noted. CHEST: Bilateral crackles. HEART: PMI 5th left intercostal space. Normal first and second heart sounds. Soft heart murmur. ABDOMEN: Soft. No organomegaly. Liver is palpable 3 cm below the right costal margin. EXTREMITIES: Lower extremities mild edema. NEUROLOGIC: Awake, alert, and oriented. LABORATORY DATA: Sodium of 137, potassium 3.3, BUN of 16, creatinine of 1.48. White blood cell count of 9.2, hemoglobin 15.9, hematocrit 48%. Chest x-ray showing pulmonary edema with cardiomegaly and bilateral pleural effusion. IMPRESSION AND PLAN: 1. Acute pulmonary edema. 2. Hypertension. 3. Diabetes mellitus. 4. Smoker. 5. The patient drinks alcohol 5-6 beers a day. 6. Left bundle branch block. 7. Hyperlipidemia. We had a lengthy discussion about his presentation when he had flash pulmonary edema. We are going to get an echocardiogram, serial cardiac enzymes, deep venous thrombosis prophylaxis. We are going to load him with Plavix. The substrate for his flash pulmonary edema needs to be investigated further. This could be simply severe hypertension, but other very severe coronary artery disease. Because of the patient's size, presence of left bundle branch block etc. and very acute and very critical presentation, the patient was almost going to be arrested and intubated having proceeding directly with cardiac cath would be better choice than noninvasive workup. Risks are discussed and explained including , bleeding, etc. Questions are answered. MD SHEELA Pagan/LIN /[id number]
--- NOTE | 2020-04-05 14:33 | History and Physical ---
PRIMARY CARE PHYSICIAN: Dr. Hopkins at [facility]. CHIEF COMPLAINT: Shortness of breath and generalized weakness. HISTORY OF PRESENT ILLNESS: This is a 70-year-old male with past medical history of hypertension, high cholesterol, diabetes, who presented to the ER with complaints of shortness of breath x1 week and fatigue with exertion. He reports he had stopped taking his blood pressure medication because he was having leg cramps, so that is when his shortness of breath started to worsen. Last night, he was not able to sleep and continued to have extreme shortness of breath, so presented to the ER for further evaluation. He denies chest pain, nausea, vomiting, abdominal pain, or leg pain. He, however, reported diaphoretic, diaphoresis, shortness of breath with exertion and at rest, he also reported not being able to breathe through his nose, mainly thought was due to sinus allergies. In the ER, he was noted to have O2 saturation of 68% on room air. He was placed on oxygen 2 L to 100%. His blood pressure was 207/140. Chest x-ray with pulmonary congestion. First set of troponins negative. BNP was 259, so he was admitted for further evaluation and management. PAST MEDICAL HISTORY: 1. Hypertension. 2. High cholesterol. 3. Diabetes type 2. PAST SURGICAL HISTORY: He reports bilateral knee surgeries. FAMILY MEDICAL HISTORY: He reports heart disease. SOCIAL HISTORY: He reports smoking cigar once in a while, drinking beer 6 pack every other day, and denies any illicit drug use. and lives with his . ALLERGIES: NO KNOWN ALLERGIES. REVIEW OF SYSTEMS: Twelve-system reviewed and negative except as reported in HPI. PHYSICAL EXAMINATION: VITAL SIGNS: Temperature 98.6, pulse is 116, respirations 18, blood pressure 147/81, pulse ox is 100% on room air. GENERAL: No acute distress. HEENT: Normocephalic, atraumatic. NECK: Supple. LUNGS: With decreased breath sounds. CARDIOVASCULAR: Tachycardic. Regular rate. GI: Soft and nontender. NEUROLOGIC: Alert, awake, and oriented x3. MUSCULOSKELETAL: Moves all extremities. No edema. SKIN: Dry. PSYCH: Calm. LABORATORY DATA: WBC 6.69, hemoglobin 14.0, hematocrit 41.3, platelet 183. Sodium 138, potassium was 3.3, now 3.5; creatinine 1.48, now 1.2, BUN 15, blood glucose 127. AST 52, ALT , BNP 305, PT 12.3, INR 0.87, APTT 25.5. UA is clean. COVID PCR is pending. IMAGING: Chest x-ray shows central pulmonary vascular congestion and moderate interstitial edema underlying pneumonia cannot be excluded in the lower lungs in the appropriate clinical context. 1. Acute respiratory distress due to likely congestive heart failure exacerbation. Lasix IV was started. Echo is pending. Cardiology has been consulted and was given nitroglycerin and Plavix. 2. Hypertension. Resume lisinopril, nifedipine and Coreg. We will treat also with hydralazine as needed. 3. Acute kidney injury. Creatinine 1.4, improved cancel breath. 4. Elevated LFTs. Likely due to alcohol use. We will check hepatitis panel. 5. Diabetes. We will check hemoglobin A1c and sliding scale insulin before meals and at bedtime. 6. High cholesterol. Continue on statin. 7. Deep venous thrombosis prophylaxis. Lovenox daily. PLAN: To continue tele monitor, IV Lasix and Campos in place for strict I and Os. Cardiology plans heart catheterization tomorrow morning. Dictated by ROSANA Guzmán Jose Hines MD MY/MODL /[id number]
[2020-04-05 16:41] LABS: CREATINE KINASE MB 2.9 ng/mL (0-5.0)
[2020-04-05] MEDS: LORATADINE 10 MG TAB PO SCH (17:05)
[2020-04-05] MEDS: CRESTOR 10MG PO SCH (21:13)
--- NOTE | 2020-04-05 21:16 | NUR ---
PATIENT STATES THAT HE IS VERY ANXIOUS AND NEEDS SOMETHING TO HELP HIM SLEEP TONIGHT DUE TO PROCEDURE IN THE AM MAKING HIM WORRY. PT ALSO STATES HE FORGOT TO TELL DR HESTER THAT HE HAD A PENILE IMPLANT DONE 9 YEARS AGO AND IT'S THE INFLATABLE KIND. CALLED AND SPOKE WITH DR HESTER TO NOTIFY OF IMPLANT AND ANXIETY. ORDERED TO GIVE PT AMBIEN. WILL CONT TO MONITOR.
[2020-04-05] MEDS: ZOLPIDEM TARTRATE 5 MG TAB PO PRN (21:32)
[2020-04-06] VITALS (12 sets, daily range): BP systolic 103–142; BP diastolic 66–100
[2020-04-06] MEDS: SODIUM CHLORIDE 0.9% 1000ML 1,000 ML IV SCH ×2 (02:18→17:20)
[2020-04-06 04:51] LABS: BASOPHILS % 0.3 % (0.0-1.0); EOSINOPHILS # (AUTO) 0.1 (0.0-0.4); EOSINOPHILS % 0.8 % (0.0-6.0); HEMATOCRIT 41.4 % (38.2-49.6); HEMOGLOBIN 13.6 g/dL (14.0-18.0); LYMPHOCYTES # (AUTO) 1.1 (1.0-3.2); LYMPHOCYTES % 16.6 % (18.0-39.1); MEAN CORPUSCULAR HEMOGLOBIN 30.6 pg (28-32); MEAN CORPUSCULAR HGB CONC 32.9 g/dL (31-35); MEAN CORPUSCULAR VOLUME 93.2 fL (81-99); MONOCYTES # (AUTO) 1.1 (0.2-0.8); MONOCYTES % 16.6 % (4.4-11.3); NEUTROPHILS # (AUTO) 4.1 (2.1-6.9); NEUTROPHILS % 65.4 % (38.7-80.0); PLATELET COUNT 177 x10e3/uL (140-360); RED BLOOD COUNT 4.44 x10e6/uL (4.3-5.7); RED CELL DISTRIBUTION WIDTH 13.2 % (11.7-14.4)
[2020-04-06 05:06] LABS: ALBUMIN 4.1 g/dL (3.5-5.0)
[2020-04-06 05:13] LABS: ALANINE AMINOTRANSFERASE 44 IU/L (0-55); ALBUMIN/GLOBULIN RATIO 1.4 (0.8-2.0); ALKALINE PHOSPHATASE 60 IU/L (40-150); ANION GAP 16.6 mmol/L (8-16); BLOOD UREA NITROGEN 15 mg/dL (7-26); BUN/CREATININE RATIO 13 (6-25); CALCIUM 8.3 mg/dL (8.4-10.2); CARBON DIOXIDE 21 mmol/L (22-29); CHLORIDE 103 mmol/L (98-107); CREATININE, SERUM 1.13 mg/dL (0.72-1.25); EST GLOMERULAR FILTRATION RATE > 60 ML/MIN (60-); GLUCOSE 118 mg/dL (74-118); POTASSIUM 3.6 mmol/L (3.5-5.1); SODIUM 137 mmol/L (136-145)
[2020-04-06 05:38] LABS: CHOL/HDL RATIO 4.4 (3.9-4.7)
[2020-04-06 05:48] LABS: THYROID STIMULATING HORMONE 1.602 uIU/mL (0.350-4.940)
[2020-04-06] MEDS: INSULIN REGULAR, HUMAN 100 UNIT/1 ML 3ML VIAL SQ SCH ×4 (07:30→20:48)
--- NOTE | 2020-04-06 08:24 | Diagnostic Imaging Report ---
TECHNIQUE: Frontal view of the chest. INDICATION: ^CHF ^[id number] ^0510 ^Y COMPARISON: 04/04/2020 DISCUSSION: Limited evaluation due to portable technique. Lines and hardware: Overlying EKG leads are noted. Heart and mediastinum: Cardiomediastinal silhouette is within normal limits. Pulmonary vascular congestion is significantly improved. Lungs and pleura: Prominent interstitial markings have significantly improved. Negative for focal consolidation, large effusion or pneumothorax. Pleural effusions and also decrease in size. Negative for large pneumothorax. Soft tissues and bones: No acute abnormality. IMPRESSION: Significant interval improvement in central vascular congestion and pulmonary edema. Question trace residual effusions. Signed by: Kapil Bañuelos MD on 04/06/2020 8:21 AM
[2020-04-06] MEDS: CARVEDILOL 12.5 MG TAB PO SCH ×2 (09:00→17:25)
[2020-04-06] MEDS: FUROSEMIDE INJ 10 MG/ML 4 ML VIAL IV SCH (09:09)
[2020-04-06] MEDS ORDERED: LIDOCAINE HCL 2% LOCAL 20 ML VIAL ONE (10:12)
[2020-04-06] MEDS ORDERED: FENTANYL CITRATE/PF 100MCG/2 ML INJ ONE (10:12)
[2020-04-06] MEDS ORDERED: MIDAZOLAM HCL 2 MG/2 ML VIAL ONE (10:12)
[2020-04-06] MEDS ORDERED: HEPARIN SOD/SOD CHLORIDE 2,000 ML ONE (10:13)
[2020-04-06] MEDS ORDERED: IOPAMIDOL 370 MG/ML 200 ML INFUS..BTL INJ ONE ×2 (10:13→11:05)
[2020-04-06] MEDS ORDERED: SODIUM CHLORIDE 0.9% 1000ML 1,000 ML ONE (10:13)
[2020-04-06] MEDS ORDERED: BIVALRIUDIN 250 MG/VIAL VIAL IV ONE (10:52)
[2020-04-06] MEDS ORDERED: SODIUM CHLORIDE 0.9% 50ML 50 ML ONE (10:53)
[2020-04-06] MEDS ORDERED: CLOPIDOGREL BISULFATE 75 MG TAB ONE (11:12)
[2020-04-06] MEDS ORDERED: CEFAZOLIN SOD 2 GM/D5W 50ML 50 ML IV ONE (11:13)
[2020-04-06] MEDS ORDERED: ASPIRIN 81 MG CHEW TAB ONE (11:13)
[2020-04-06] MEDS ORDERED: HYDROCODONE/APAP 5MG-325MG TAB PO PRN (11:30)
[2020-04-06] MEDS ORDERED: ONDANSETRON HCL INJ 2MG/ML 2ML 2 MG/ML VIAL IV PRN (11:30)
--- NOTE | 2020-04-06 12:00 | NUR ---
Received patient from Cath-Lab patient arrived in bed awake alert and oriented, verbalizing needs. instructed to remain bed rest for 4hours, verbalized understating.
--- NOTE | 2020-04-06 14:02 | Progress Note ---
DATE: 04/06/2020 SUBJECTIVE: The patient is seen in bed, status post left heart catheterization with stent to the RCA. He denies any chest pain. Shortness of breath is improving. PHYSICAL EXAMINATION: VITAL SIGNS: Temperature 98.5, pulse is 93, respirations 19, blood pressure 142/91, and pulse ox is 99% on 2 L of oxygen. GENERAL: No acute distress. HEENT: Normocephalic and atraumatic. NECK: Supple. LUNGS: With decreased breath sounds. CARDIOVASCULAR: Regular rate and rhythm. GI: Soft and nontender. NEUROLOGIC: Alert, awake, and oriented x3. MUSCULOSKELETAL: Moves all extremities. SKIN: Dry. PSYCH: Calm. LABORATORY DATA: WBC 6.31, hemoglobin 13.6, hematocrit 41.4, and platelet 177. Sodium 137, potassium 3.6, BUN 15, creatinine 1.13, and estimated GFR is greater than 60. AST 26 and ALT 44. Triglycerides 168, LDL 80, and HDL 34. TSH 1.602. IMPRESSION: 1. Acute respiratory distress due to pulmonary edema. Continue with aggressive diuretics. Echo with EF of 35%. Cardiology has been consulted. 2. Coronary artery disease. The patient underwent left heart catheterization with stent to the RCA. We will resume home medications. 3. Hypertension. Stable on lisinopril, nifedipine, and Coreg. 4. Acute kidney injury, improving. 5. Systolic congestive heart failure. Per echo. We will continue with CASS, beta-maine, and Lasix. 6. Elevated LFTs, likely due to alcohol use. Trending down. 7. Diabetes type 2. Hemoglobin A1c is 6.1. We will continue with sliding scale insulin. 8. High cholesterol. Continue statin. 9. Deep vein thrombosis prophylaxis, on Lovenox. PLAN: To continue current treatment, status post stent to the RCA. We will monitor overnight and possibly discharge home tomorrow. Dictated by ROSANA Guzmán Jose Hines MD MY/MODL /[id number]
--- NOTE | 2020-04-06 16:38 | Operative Report ---
DATE OF PROCEDURE: SURGEON: Daniel Rudolph MD PREOPERATIVE DIAGNOSES: 1. Acute coronary syndrome. 2. Acute on chronic systolic heart failure. 3. Coronary artery disease. 4. Acute pulmonary edema. 5. Coronary artery atherosclerosis. POSTOPERATIVE DIAGNOSES: 1. Acute coronary syndrome. 2. Acute on chronic systolic heart failure. 3. Coronary artery disease. 4. Acute pulmonary edema. 5. Coronary artery atherosclerosis. PROCEDURE PERFORMED: 1. Left heart cardiac catheterization. 2. Percutaneous coronary intervention of the [id number] RCA with a 2.25 x 15 mm Resolute Tyrese drug-eluting stent, upsized to 2.5 mm. 3. Selective coronary angiography. 4. LV gram with LVEDP and aortic valve pull back. MOLDER LABELS: Daniel Rudolph, windows migration technician. FIELD SALES CONSULTANT: Dr. Seth Rudolph. ANESTHESIA USED: Local 2% lidocaine as well as moderate sedation with Fentanyl and Versed. DESCRIPTION OF PROCEDURE: Briefly, this is a 70-year-old gentleman who presented with ACS as well as acute on chronic systolic heart failure and pulmonary edema, who was referred to the cardiac catheterization lab for further evaluation of his coronary status as well as intracardiac pressures. The procedure was described to the patient including benefits, risks, alternatives to the procedure, the patient confirmed understanding and signed informed consent. The patient was brought to the cardiac catheterization lab. The patient was prepped and draped in sterile fashion. Moderate sedation was provided to the patient throughout the procedure with appropriate monitoring including patient's consciousness, respiration, oxygen saturation and CO2 monitoring for a period of greater than 15 minutes. The right groin was palpated in the region above the artery was anesthetized with 2% local lidocaine using micropuncture technique, arterial access was obtained in the right femoral artery and a 4-Turkmen sheath was placed without difficulty. A 4-Turkmen JL4 catheter was advanced over J-wire to ascending aorta, the wire was removed. The catheter aspirated to ensure no air was in the system and flushed in the usual fashion. Catheter engagement to the left main coronary artery without difficulty. Angiograms of left coronary systems were taken in several various orthogonal views. Diagnostic catheter used for the left coronary was subsequently removed, then a 4-Turkmen catheter was advanced to the wire to the ascending aorta. The catheter chosen to engage the RCA was a 3DRC catheter. The wire was removed. The catheter was aspirated to ensure no air was in the system and flushed in the usual fashion. The diagnostic catheter engaged the right coronary artery without difficulty. Angiograms of the right coronary systems were taken in several various orthogonal angles. Finally, a 4-Turkmen pigtail was advanced over the wire and got into left ventricle. The wire was removed. The catheter aspirate to ensure no air was in the system and flushed in the usual fashion. FINDINGS: Coronary findings left main, no significant obstructive disease. The LAD is a wrap-around artery with mild plaquing. The circumflex artery is nondominant with mild plaquing. The right coronary artery has Mitchell's hook type takeoff with a heomwfpa-mj-bka 90% lesion and is right dominant. Left ventriculography revealed EF 35% to 39% with some inferior hypokinesis. Aortic pressure was 130/70 with LV pressure of 130/33, confirming elevated LVEDP and no significant aortic valve pressure gradient. At this time, we decided to intervene upon the RCA. We then upsized the 4- Turkmen right femoral sheath to a 6-Turkmen sheath and we advance an AL1 with side holes 6- Turkmen guide catheter and engaged the right coronary artery. We use Angiomax to ensure adequate anticoagulation for procedure. We then advanced a Winters coronary wire down the RCA into the distal RPDA. The lesion in the proximal to mid RCA was direct stented with a 2.25 x 15 mm Resolute Phoenix stent up to 20 atmosphere pressure increasing a size to 2.5 mm. The preprocedural stenosis of 90% with REYNA-2 flow improve to 0% with REYNA-3 flow post stent. Final angiography revealed no evidence of dissection or perforation. We then subsequently removed the system and performed right femoral angiography, which revealed an adequate arteriotomy site for placement of the closure device. Subsequently, a 6-Turkmen Angio-Seal closure device was used to seal the groin with adequate hemostasis. The patient was sent to holding area in stable condition. The patient was hemodynamically stable throughout the entirety of the procedure. DISPOSITION: Return the patient to nursing unit and monitor for groin complications. ESTIMATED BLOOD LOSS: Less than 30 mL. CONDITION: Stable. COMPLICATIONS: None. SPECIMENS: None. PLAN: Dual antiplatelet therapy with aspirin and Plavix to continue thereafter for period of at least one year. Cardiac rehabilitation. Cardiac medical therapy and aggressive risk factor modification. MD LUIS Gordon /[id number] MTDValentine
[2020-04-06] MEDS ORDERED: FUROSEMIDE INJ 10 MG/ML 4 ML VIAL IV SCH (17:00)
[2020-04-06] MEDS: LISINOPRIL 10 MG TAB PO SCH ×3 (17:00→17:29)
[2020-04-06] MEDS: LORATADINE 10 MG TAB PO SCH (17:24)
[2020-04-06] MEDS: FUROSEMIDE INJ 10 MG/ML 2 ML VIAL IV SCH (17:31)
--- NOTE | 2020-04-06 19:00 | NUR ---
Received patient from day nurse patient is alert and oriented x3. patient is on 2 lc/prn room air. safety and fall precautions maintained as per hospital protocol: bed in lowest postion and locked, needed items beside bed and call gillis close to patient, patient instructed to use it to call nurses for help. patient is currently stable, will continue to monitor.
--- NOTE | 2020-04-06 19:15 | NUR ---
Pulses in the lower extremity are present on assessment.
[2020-04-06] MEDS: CRESTOR 10MG PO SCH (20:53)
[2020-04-06] MEDS: ZOLPIDEM TARTRATE 5 MG TAB PO PRN (20:54)
--- NOTE | 2020-04-07 | NUR ---
Pulses in the lower extremity are present on assessment.
[2020-04-07 00:45] VITALS: BP 130/90
--- NOTE | 2020-04-07 04:00 | NUR ---
Pulses in the lower extremity are present on assessment.
[2020-04-07 04:22] VITALS: BP 134/84
[2020-04-07 04:58] LABS: BASOPHILS % 0.3 % (0.0-1.0); EOSINOPHILS # (AUTO) 0.1 (0.0-0.4); EOSINOPHILS % 1.7 % (0.0-6.0); HEMATOCRIT 39.3 % (38.2-49.6); HEMOGLOBIN 12.9 g/dL (14.0-18.0); LYMPHOCYTES # (AUTO) 0.9 (1.0-3.2); LYMPHOCYTES % 14.1 % (18.0-39.1); MEAN CORPUSCULAR HEMOGLOBIN 30.7 pg (28-32); MEAN CORPUSCULAR HGB CONC 32.8 g/dL (31-35); MEAN CORPUSCULAR VOLUME 93.6 fL (81-99); MONOCYTES # (AUTO) 1.1 (0.2-0.8); NEUTROPHILS # (AUTO) 4.4 (2.1-6.9); NEUTROPHILS % 66.7 % (38.7-80.0); PLATELET COUNT 164 x10e3/uL (140-360); RED CELL DISTRIBUTION WIDTH 12.9 % (11.7-14.4)
[2020-04-07 05:26] LABS: ALANINE AMINOTRANSFERASE 32 IU/L (0-55); ALBUMIN/GLOBULIN RATIO 1.4 (0.8-2.0); ALKALINE PHOSPHATASE 57 IU/L (40-150); ANION GAP 14.2 mmol/L (8-16); BLOOD UREA NITROGEN 15 mg/dL (7-26); BUN/CREATININE RATIO 15 (6-25); CALCIUM 8.2 mg/dL (8.4-10.2); CARBON DIOXIDE 21 mmol/L (22-29); CHLORIDE 102 mmol/L (98-107); EST GLOMERULAR FILTRATION RATE > 60 ML/MIN (60-); GLUCOSE 97 mg/dL (74-118); POTASSIUM 3.2 mmol/L (3.5-5.1); SODIUM 134 mmol/L (136-145)
[2020-04-07] MEDS: SODIUM CHLORIDE 0.9% 1000ML 1,000 ML IV SCH (06:40)
--- NOTE | 2020-04-07 06:45 | NUR ---
Patient endorsed to next shift for continuity of care.
[2020-04-07] MEDS: INSULIN REGULAR, HUMAN 100 UNIT/1 ML 3ML VIAL SQ SCH ×2 (07:30→11:30)
[2020-04-07 08:00] VITALS: BP 133/90
[2020-04-07 09:00] VITALS: BP 133/90
[2020-04-07] MEDS ORDERED: CLOPIDOGREL BISULFATE 75 MG TAB PO SCH (09:00)
[2020-04-07] MEDS: LORATADINE 10 MG TAB PO SCH (09:17)
[2020-04-07] MEDS: LISINOPRIL 10 MG TAB PO SCH (09:18)
[2020-04-07] MEDS: CARVEDILOL 12.5 MG TAB PO SCH (09:18)
[2020-04-07] MEDS: FUROSEMIDE INJ 10 MG/ML 2 ML VIAL IV SCH (09:18)
[2020-04-07] MEDS ORDERED: POTASSIUM CHLORIDE 10MEQ EA PO ONE ×3 (09:45→11:30)
[2020-04-07] MEDS ORDERED: ASPIRIN 81 MG ENTERIC COATED PO SCH (11:00)
[2020-04-07 12:17] VITALS: BP 121/94
[2020-04-07] MEDS ORDERED: LISINOPRIL10 MG PO (15:17)
[2020-04-07] MEDS ORDERED: PLAVIX75 MG PO (15:17)
[2020-04-07] MEDS ORDERED: COREG12.5 MG PO (15:17)
[2020-04-07] MEDS ORDERED: ASPIRIN EC81 MG PO (15:17)
--- NOTE | 2020-04-07 15:35 | NUR ---
Nutrition Screen Note RD Recommendation for Physician: - Recommend adding cardiac diet to diet order - If PO intake is <50% of meals, offer Ensure Compact Plan of Care: RD following, monitoring for tolerance and adequacy Nutrition reason for involvement: CHF - diagnosis Primary Diagnose(s): CHF, flash pulmonary edema, hypoxia, and respiratory distress PMH: Hypertension, High cholesterol, Diabetes type 2 Ht: 68 in Wt:236 lb BMI: 35.9 kg/m2 IBW:[address] Assessment: (04/07/20) Chart reviewed. Labs and meds reviewed. Pt is a 70 year old male admitted with CHF, flash pulmonary edema, hypoxia, and respiratory distress. Pt reports eating well prior to admission, but mentioned he currently has a decreased appetite. Pt stated he usually weighs 225 lbs; however, pt currently has a weight of 236 lbs in chart. No N/V/D/C or chewing/swallowing issues. Pt declined the need for diet education. Will continue to monitor. Current Diet: 1400 ADA Malnutrition Evaluation (04/07/20) The patient does not meet criteria for a specified degree of malnutrition at this time. Will re-evaluate at follow-up as appropriate. Diet Education Needs Assessment: Pt declined the need for diet education Nutrition Care Level: low Signed: Camilla Pretty, RD, LD
[2020-04-07 16:30] VITALS: BP 126/90
--- NOTE | 2020-04-07 16:30 | NUR ---
PATIENT DISCHARGED HOME VERBALIZED UNDERSTANDING OF DISCHARGE INSTRUCTIONS. PATIENT VOIDED 350CC OF JENNIFER URINE PRIOR TO DISCHARGE. IV ACCES DISCONTINUED PRIOR TO DISCHARGE. ESCORTED PATIENT TO FRONT OF HOSPITAL, IN WHEEL CHAIR TO MEET HIS .
--- NOTE | 2020-04-07 22:31 | Discharge Summary ---
PRIMARY CARE PHYSICIAN: Dr. Hopkins at [facility]. FINAL DISCHARGE DIAGNOSES: 1. Acute respiratory distress due to pulmonary edema. 2. Coronary artery disease, status post percutaneous coronary intervention to right coronary artery. 3. Hypertension. 4. Acute kidney injury. 5. Systolic congestive heart failure, new diagnosis. 6. Elevated liver function tests. 7. Diabetes type 2. 8. High cholesterol. BOG CUTTER: Daniel Rudolph M.D., Cardiology PROCEDURES: He underwent left heart catheterization with stent to the RCA. HISTORY: Per HPI. HOSPITAL COURSE: This is a 70-year-old male, who presented to the ER with increased shortness of breath and fatigue. His chest x-ray showed central pulmonary vascular congestion and moderate interstitial edema, so he was started on aggressive IV diuretics. Cardiology was consulted for further evaluation, troponin trended, echo with EF of 35%. He was advised to undergo left heart cath, which showed blockage, so we placed a stent in the RCA. He is started on heart failure management drugs such as beta-blockers, Lasix, CASS inhibitors. He is breathing much better, no chest tightness, able to lie flat in bed, with shortness of breath. He was monitored overnight, remained afebrile, vital signs stable. We will discharge home on Plavix, aspirin, Lasix, beta-blockers, and statin for followup with his guide alpine and PCP in 1 to 2 weeks. Discussed the importance of cessation of alcohol use, low-salt diet, and restricting his fluid intake to 1.5 L a day. PHYSICAL EXAMINATION: VITAL SIGNS: Temperature 97.8, pulse is 87, respirations 20, blood pressure 121/94, pulse ox is 98 on room air. GENERAL: In no acute distress. HEENT: Normocephalic, atraumatic. NECK: Supple. LUNGS: Decreased breath sounds. CARDIOVASCULAR: Regular rate and rhythm. GI: Soft and nontender. NEUROLOGIC: Alert, awake, and oriented x3. MUSCULOSKELETAL: Moves all extremities. SKIN: Dry. PSYCH: Calm. CONDITION AT DISCHARGE: Improved and stable. DISCHARGE MEDICATIONS: Please see medication reconciliation list. FOLLOWUP: Follow up with PCP and Cardiology in 1 to 2 weeks. TIME SPENT: Total discharge time 32 minutes. Dictated by ROSANA Guzmán Yiching MD [facility] [place]/MODL /[id number] cc: Cornelius Hopkins MD
== END 2020-04-07 16:30 | disposition home or self-care (01) | DRG 246 ==
LOC: ER 23:14 → ERHOLD 04-05 05:01 → IMCU 04-05 06:04
PROVIDERS: ADMIT Internal Medicine; ATTEND Internal Medicine
PROC: 027034Z Dilation of Coronary Artery, One Artery with Drug-eluting Intraluminal Device, Percutaneous Approach (ICD-10-PCS; principal; 2020-04-06)
PROC: 4A023N7 Measurement of Cardiac Sampling and Pressure, Left Heart, Percutaneous Approach (ICD-10-PCS; 2020-04-06)
PROC: B2111ZZ Fluoroscopy of Multiple Coronary Arteries using Low Osmolar Contrast (ICD-10-PCS; 2020-04-06)
PROC: B2151ZZ Fluoroscopy of Left Heart using Low Osmolar Contrast (ICD-10-PCS; 2020-04-06)
DX: I11.0 Hypertensive heart disease with heart failure (principal); J81.0 Acute pulmonary edema; N17.9 Acute kidney failure, unspecified; E11.9 Type 2 diabetes mellitus without complications; I50.23 Acute on chronic systolic (congestive) heart failure; E78.00 Pure hypercholesterolemia, unspecified; R94.5 Abnormal results of liver function studies; Z11.59 Encounter for screening for other viral diseases; F10.10 Alcohol abuse, uncomplicated
CPT/HCPCS: 36415; 51700; 71045; 80048; 80053; 80061; 81001; 82550; 82553; 82948; 83036; 83880; 84443; 84484; 85025; 85610; 85730; 86850; 86900; 92928; 93005; 93306; 93458; 94660; 99152; 99153; 99284; C1760; C1766; C1876; C1887; J0360; J0583; J0690; J1940; J2001; J2250; J3010; J7030; Q9967; U0002

== ENCOUNTER 2021-04-13 08:53 | Emergency (ER) | payer MEDICARE ==
[~2021-04-13] VITALS: Ht 177.8 cm; Wt 111.1 kg
[~2021-04-13 08:53] MED LIST changes: +ASPIRIN EC81 MG PO; +COREG12.5 MG PO; +LISINOPRIL10 MG PO; +PLAVIX75 MG PO; +TIZANIDINE HCL4 MG PO
[2021-04-13] MEDS ORDERED: ASPIRIN 81 MG CHEW TAB PO ONE (09:15)
[2021-04-13 10:14] LABS: ALBUMIN 3.1 g/dL (3.5-5.0); ALBUMIN/GLOBULIN RATIO 0.7 (0.8-2.0); ANION GAP 19.4 mmol/L (8-16); CALCIUM 7.9 mg/dL (8.4-10.2); CREATININE, SERUM 1.27 mg/dL (0.72-1.25); POTASSIUM 3.4 mmol/L (3.5-5.1)
[2021-04-13] MEDS ORDERED: SODIUM CHLORIDE 0.9% 50ML 50 ML ONE (12:12)
[2021-04-13] MEDS ORDERED: IOPAMIDOL 370 MG/ML 200 ML INFUS..BTL INJ ONE (12:12)
[2021-04-13 12:36] LABS: HEMATOCRIT 37.9 % (38.2-49.6); HEMOGLOBIN 12.3 g/dL (14.0-18.0); LYMPHOCYTES # (AUTO) 0.8 (1.0-3.2); LYMPHOCYTES % 14.2 % (18.0-39.1); MEAN CORPUSCULAR HEMOGLOBIN 31.9 pg (28-32); MEAN CORPUSCULAR HGB CONC 32.5 g/dL (31-35); MEAN CORPUSCULAR VOLUME 98.2 fL (81-99); MONOCYTES # (AUTO) 0.3 (0.2-0.8); MONOCYTES % 5.7 % (4.4-11.3); NEUTROPHILS # (AUTO) 4.6 (2.1-6.9); NEUTROPHILS % 80.1 % (38.7-80.0); PLATELET COUNT 174 x10e3/uL (140-360); RED BLOOD COUNT 3.86 x10e6/uL (4.3-5.7); RED CELL DISTRIBUTION WIDTH 13.8 % (11.7-14.4)
[2021-04-13] MEDS ORDERED: ONDANSETRON ODT4 MG PO (12:45)
[2021-04-13] MEDS ORDERED: CASIRIVIMAB/IMDEVIMAB 10 ML in SODIUM CHLORIDE 0.9% 100 ML IV ONE (12:45)
[2021-04-13 14:17] VITALS: BP 119/65
== END 2021-04-13 14:19 | disposition home or self-care (01) ==
LOC: ER 09:03
DX: R06.00 Dyspnea, unspecified (principal); U07.1 COVID-19; J12.82 Pneumonia due to coronavirus disease 2019
CPT/HCPCS: 36415; 71045; 71260; 80053; 83880; 84484; 85025; 85379; 93005; 99284; J7050; Q9967; U0002